=== PATIENT | male | born 1995 | race Caucasian/White ===

== ENCOUNTER 2025-01-24 10:20 | Emergency (ER) | payer OTHER ==
[~2025-01-24] VITALS: Ht 175.3 cm; Wt 81.6 kg
[2025-01-24] MEDS ORDERED: IBUP-1490 PO (13:18)
[2025-01-24] MEDS ORDERED: ACET-2605 PO (13:18)
[2025-01-24 13:25] VITALS: BP 117/71; TEMP 98.6; O2SAT 100
== END 2025-01-24 13:26 | disposition home or self-care (01) ==
LOC: ER 10:20
DX: S92.524A Nondisplaced fracture of middle phalanx of right lesser toe(s), initial encounter for closed fracture (principal); S92.534A Nondisplaced fracture of distal phalanx of right lesser toe(s), initial encounter for closed fracture; X58.XXXA Exposure to other specified factors, initial encounter; Y93.67 Activity, basketball; Y92.89 Other specified places as the place of occurrence of the external cause; Y99.8 Other external cause status
CPT/HCPCS: 73660-TC